=== PATIENT | female | born 1955 | race Caucasian/White ===

== ENCOUNTER 2019-05-09 20:09 | Emergency (ER) | payer MEDICARE ==
--- OUTSIDE RECORDS SUMMARY | 2019-05-09 20:17 | XMS REPORT | Continuity of Care Document ---
:1955 External Reference #:[id number] Author Name Haylee Dempsey O.D. (transmitted by agent of provider [facility]) Address [address] [place] [address] Care Team Providers Name Role Phone Brielle Klein M.D. - Family Care Team Information Debt Collection Specialist [phone] Medicine Hannah Claros M.D. - Pediatric Care Team Information Debt Collection Specialist Dermatology Problems Active Problems Provider Date Acne Onset: Mild depression Onset: Sleep disorder Onset: Tonsil carcinoma Onset: Epiretinal membrane Yuri Fitzgerald M.D. Onset: 04/06/2015 Vitreous degeneration Yuri Fitzgerald M.D. Onset: 04/06/2015 Presence of intraocular lens Yuri Fitzgerald M.D. Onset: 04/06/2015 Rosacea Onset: Other secondary cataract, left eye Yuri Fitzgerald M.D. Onset: 09/25/2017 Myopia Haylee Dempsey O.D. Onset: 12/28/2018 Presbyopia Haylee Dempsey O.D. Onset: 12/28/2018 Regular astigmatism Haylee Dempsey O.D. Onset: 12/28/2018 Social History Type Date Description Comments Sex Unknown ETOH Use Consumes 3 beers per day Tobacco Use Start: Unknown End: Unknown Patient is a former smoker Recreational Drug Use Denies Drug Use Smoking Status Reviewed: 12/28/18 Patient is a former smoker Allergies, Adverse Reactions, Alerts Active Allergies Reaction Severity Comments Date Bee Sting 07/15/2016 Medications Active Medications SIG Qnty Indications Ordering Provider Date Soolantra Unknown 1% Cream FinHannah Romo M.D. 15% Gel Prevident 5000 Dry Mouth Unknown 1.1% Gel Alprazolam Kathryn Mitchell.PMeir 0.25mg Tablets Hydroxyzine HCL StormSureshnti OCCUPATIONAL HEALTH NURSE SUPERVISOR 25mg Tablets Levothyroxine Sodium Mattywnti OCCUPATIONAL HEALTH NURSE SUPERVISOR 25mcg Tablets Immunizations Description No Information Available Vital Signs Date Vital Result Comment 10/12/2017 2:57pm BP Systolic 125 mmHg BP Diastolic 85 mmHg Heart Rate 64 /min Respiratory Rate 16 /min Results Description No Information Available Procedures Date Code Description Status 12/28/2018 01355 Scanning Computerized Opthalmic Diagnostic Posterior Seg Completed Retina 12/28/2018 22442 Est Patient Comprehensive Exam Completed 12/28/2018 102 Level 2 Fit RGP/Soft Toric/Bifocal/Monovision/Extended Completed Wear Medical Devices Description No Information Available Encounters Description No Information Available Assessments Date Code Description Provider 12/28/2018 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 12/28/2018 Z96.1 Presence of intraocular lens Haylee Dempsey O.D. 12/28/2018 H52.13 Myopia, bilateral Haylee Dempsey O.D. 12/28/2018 H52.4 Presbyopia Haylee Dempsey O.D. 12/28/2018 H52.223 Regular astigmatism, bilateral Haylee Dempsey O.D. Plan of Treatment No Information Available Functional Status Description No Information Available Mental Status Description No Information Available Referrals Description No Information Available
--- OUTSIDE RECORDS SUMMARY | 2019-05-09 20:17 | XMS REPORT | Continuity of Care Document ---
:1955 External Reference #:[id number] Author Name Haylee Dempsey O.D. (transmitted by agent of provider [facility]) Address [address] [place] [address] Care Team Providers Name Role Phone Brielle Klein M.D. - Family Care Team Information Networks Computer Consultant [phone] Medicine Problems Active Problems Provider Date Acne Onset: [...] Ordering Provider Date Soolantra Unknown 1% Cream Hannah Cook M.D. 15% Gel Prevident 5000 Dry Mouth Unknown 1.1% Gel Alprazolam StephenKathryn N.P. 0.25mg Tablets Hydroxyzine HCL Darvin Carcamo FACETOR 25mg Tablets Levothyroxine Sodium Darvin Carcamo FACETOR 25mcg Tablets Immunizations Description No Information Available Vital Signs Date Vital Result Comment 10/12/2017 2:57pm BP Systolic 125 mmHg BP Diastolic 85 mmHg Heart Rate 64 /min Respiratory Rate 16 /min Results Description No Information Available Procedures Date Code Description Status 12/28/2018 41870 Scanning Computerized Opthalmic Diagnostic Posterior Seg Completed Retina 12/28/2018 62643 Est Patient Comprehensive Exam Completed 12/28/2018 102 [...]
[2019-05-09] MEDS ORDERED: Ondansetron INJ* 2 MG/ML VIAL IV ONE (20:42)
[2019-05-09] MEDS ORDERED: Morphine 4 MG/ML VIAL (1 ml) 4 MG/ML VIAL IV PRN (20:42)
[2019-05-09] MEDS ORDERED: NS 0.9% 1000 ML** 1,000 ML IV ONE (20:42)
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
[2019-05-09 21:16] LABS: INR 0.97 (0.82-1.09)
[2019-05-09 21:19] LABS: Albumin 4.3 g/dL (3.2-5.2); Albumin/Globulin Ratio 1.8 (1-3); BUN/Creatinine Ratio 13.2 (8-20); Calcium 8.9 mg/dL (8.6-10.3); EGFR African American 105.1 (>60); EGFR Non-African American 86.8 (>60); Globulin 2.4 g/dL (2-4); Potassium 3.4 mmol/L (3.5-5.0); Total Bilirubin 0.2 mg/dL (0.2-1.0); Total Protein 6.7 g/dL (6.4-8.9)
[2019-05-09 21:20] LABS: Urine Appearance Cloudy; Urine Bilirubin Negative (Negative); Urine Blood Negative (Negative); Urine Color Yellow; Urine Glucose Negative (Negative); Urine Ketones Trace (Negative); Urine Nitrite Negative (Negative); Urine Protein Negative (Negative); Urine Specific Gravity 1.015 (1.010-1.030); Urine Urobilinogen Negative (Negative)
[2019-05-09 21:21] LABS: Urine Bacteria Absent (Absent); Urine Red Blood Cell Trace(0-2/hpf) (Absent); Urine Squamous Epithelial Cell Present (Absent); Urine White Blood Cell Trace(0-5/hpf) (Absent)
[2019-05-09 21:53] LABS: ABS Eosinophils 0.1 10^3/ul (0-0.6); ABS Monocytes 0.5 10^3/ul (0-0.8); ABS Neutrophils 3.4 10^3/ul (1.5-7.7); Eosinophil % 1.8 %; Hematocrit 37 % (35-47); Hemoglobin 12.8 g/dL (12.0-16.0); Lymphocyte % 19.5 %; Mean Corpuscular HGB Conc 35 g/dL (31-36); Mean Corpuscular Hemoglobin 33 pg (27-31); Mean Corpuscular Volume 95 fL (80-97); Mean Platelet Volume 6.8 fL (7.4-10.4); Nucleated Red Blood Cells % 0.1; Platelet Count 307 10^3/uL (150-450); Red Blood Count 3.89 10^6 /uL (3.70-4.87); Red Cell Distribution Width 12 % (10-15)
[2019-05-09] MEDS ORDERED: Iohexol 300* (CONTRAST) 10 ML SDV IV ONE (22:10)
[2019-05-09 23:47] VITALS: BP 126/62
== END 2019-05-09 23:47 | disposition home or self-care (01) ==
LOC: ED 20:09
DX: K92.0 Hematemesis (principal); R10.9 Unspecified abdominal pain; Z87.891 Personal history of nicotine dependence; J02.9 Acute pharyngitis, unspecified
CPT/HCPCS: 36415; 70360; 74177; 80053; 81003; 81015; 83605; 83690; 85025; 85610; 86850; 86900; 86901; 87086; 96361; 96374; 96375; 99283; J2270; J2405; Q9967